=== PATIENT | female | born 1950 | race Caucasian/White ===

== ENCOUNTER → 2017-01-16 | Outpatient (CLI) | payer OTHER | LOC: FIMAGING 13:46 | DX: Z12.39 Encounter for other screening for malignant neoplasm of breast (principal) | CPT/HCPCS: G0206 ==

== ENCOUNTER 2017-06-10 08:27 | Emergency (ER) | payer OTHER ==
--- NOTE | 2017-06-10 08:57 | EDPHY ---
H & P Stated Complaint: "I think I have a kidney stone"; L flank "ache"/nausea Time Seen by Provider: 06/10/17 08:48 HPI/ROS: CHIEF COMPLAINT: Left flank pain and nausea HISTORY OF PRESENT ILLNESS: The patient presents to the ED with acute left flank pain and nausea. She has been having intermittent symptoms for the past several weeks. The patient does have a prior history of nephrolithiasis. She required lithotripsy x1. She passed a small stone spontaneously once. The patient does have a history of known chronic bilateral nephrolithiasis by her report. The patient's past medical history is also significant for back surgery in 2014. The patient is also hypertensive and diabetic. The patient reports that her pain in the left flank is moderate in nature. She denies any dysuria or associated hematuria. She denies any complaints of abdominal pain or lower extremity numbness/weakness. REVIEW OF SYSTEMS: A comprehensive 10 point review of systems is otherwise negative aside from elements mentioned in the history of present illness. Source: Patient - Personal History Current Tetanus Diphtheria and Acellular Pertussis (TDAP): Yes - Medical/Surgical History Hx Asthma: No Hx Chronic Respiratory Disease: No Hx Diabetes: Yes Hx Cardiac Disease: No Hx Renal Disease: No Hx Cirrhosis: No Hx Alcoholism: No Hx HIV/AIDS: No Hx Splenectomy or Spleen Trauma: No Other PMH: tonsillectomy, rt breast cyst removal, seasonal allergies, htn, frequent bronchitis in winter, diabetes, L kidney stone, lithotripsy, back surgery, HTN - Social History Smoking Status: Former smoker - Physical Exam Exam: General Appearance: Alert, no distress Eyes: Pupils equal and round no pallor or injection ENT, Mouth: Mucous membranes moist Respiratory: There are no retractions, lungs are clear to auscultation Cardiovascular: Regular rate and rhythm Gastrointestinal: Abdomen is soft and nontender, no masses, bowel sounds normal Back: Mild left CVA tenderness Neurological: A&O, normal motor function, normal sensory exam, normal cranial nerves Skin: Warm and dry, no rashes Musculoskeletal: Neck is supple nontender Extremities: symmetrical, full range of motion Psychiatric: Patient is oriented X 3, there is no agitation Constitutional: Initial Vital Signs Temperature (C) 36.6 C 06/10/17 08:29 Heart Rate 88 06/10/17 08:29 Respiratory Rate 18 06/10/17 08:29 Blood Pressure 216/99 H 06/10/17 08:29 O2 Sat (%) 97 06/10/17 08:29 O2 Delivery Mode Room Air Allergies/Adverse Reactions: No Known Allergies Allergy (Verified 06/10/17 08:28) Home Medications: Medication Instructions Recorded Lisinopril [Zestril 2.5 mg (*)] 2.5 mg PO DAILY 10/05/14 metFORMIN HCL [Glucophage 500 mg 500 mg PO BIDMEAL 10/05/14 (*)] Ergocalciferol [Vitamin D2 (*)] 50,000 unit PO TU@10/12/14 Levothyroxine Sodium [Unithroid] 100 mcg PO 06/10/17 Ondansetron Odt [Zofran Odt] 4 mg PO Q4PRN PRN #20 tab 06/10/17 Medical Decision Making - Diagnostics Imaging Results: Imaging Impressions Abdomen/Pelvis CT 06/10/17 08:48 Impression: 1. Minimal left hydronephrosis due to large central calculus in the renal pelvis (similar to May 2016). 2. Bilateral nephrolithiasis. No obstructing ureteral calculi. 3. Cholelithiasis and hepatic steatosis. 4. Suspected uterine leiomyoma (unchanged). Findings discussed with Emergency Department physician, Larry Mcknight, on June 10, 2017 at 9:30 a.m. Attention: This CT examination is specifically designed to evaluate patients who are clinically suspected of having acute obstructive uropathy. This examination does not use radiographic contrast, and as such, provides only a limited evaluation of the abdomen, pelvis and retroperitoneum. If there is further clinical suspicion for pathological conditions other than obstructive uropathy, a complete CT evaluation of the abdomen and pelvis utilizing intravenous, oral, and rectal contrast should be considered. ED Course/Re-evaluation: The patient presents to the ED for several weeks of intermittent left flank pain. The patient is noted to have no evidence of pyelonephritis on her urinalysis. The patient has a normal creatinine. The patient did have a CT scan of the abdomen pelvis which demonstrates a very large left kidney stone. The patient is advised of this finding. She has been advised to follow up with Urology. The patient certainly may need to be evaluated for possible lithotripsy at some intermittent symptoms of obstruction. The patient is nontoxic and well-appearing. The patient will be discharged home in stable condition. She is given a prescription for Zofran. I have also given her the contact number of our on-call urologist. I re-evaluated the patient at 10:30 a.m.. She is in no acute distress. She is comfortable with the discharge plan and has been given customary return precautions. Differential Diagnosis: Differential diagnosis considered includes nephrolithiasis, ureterolithiasis, pyelonephritis, renal failure, myofascial strain - Data Points Laboratory Results: Laboratory Results 06/10/17 09:00 06/10/17 09:00 06/10/17 06/10/17 06/10/17 10:05 09:00 09:00 WBC 7.25 10^3/uL 10^3/uL (3.80-9.50) RBC 4.11 10^6/uL L 10^6/uL (4.18-5.33) Hgb 13.3 g/dL g/dL (12.6-16.3) Hct 38.1 % % (38.0-47.0) MCV 92.7 fL fL (81.5-99.8) MCH 32.4 pg pg (27.9-34.1) MCHC 34.9 g/dL g/dL (32.4-36.7) RDW 13.2 % % (11.5-15.2) Plt Count 243 10^3/uL 10^3/uL (150-400) MPV 11.8 fL H fL (8.7-11.7) Neut % (Auto) 52.1 % % (39.3-74.2) Lymph % (Auto) 35.2 % % (15.0-45.0) Granite % (Auto) 6.9 % % (4.5-13.0) Eos % (Auto) 3.9 % % (0.6-7.6) Baso % (Auto) 1.1 % % (0.3-1.7) Nucleat RBC Rel Count 0.0 % % (0.0-0.2) Absolute Neuts (auto) 3.78 10^3/uL 10^3/uL (1.70-6.50) Absolute Lymphs (auto) 2.55 10^3/uL 10^3/uL (1.00-3.00) Absolute Monos (auto) 0.50 10^3/uL 10^3/uL (0.30-0.80) Absolute Eos (auto) 0.28 10^3/uL 10^3/uL (0.03-0.40) Absolute Basos (auto) 0.08 10^3/uL 10^3/uL (0.02-0.10) Absolute Nucleated RBC 0.00 10^3/uL 10^3/uL (0-0.01) Immature Gran % 0.8 % % (0.0-1.1) Immature Gran # 0.06 10^3/uL 10^3/uL (0.00-0.10) Sodium 139 mEq/L mEq/L (134-144) Potassium 4.7 mEq/L mEq/L (3.5-5.2) Chloride 105 mEq/L mEq/L (97-110) Carbon Dioxide 21 mEq/l L mEq/l (22-31) Anion Gap 13 mEq/L mEq/L (8-16) BUN 25 mg/dL H mg/dL (7-23) Creatinine 0.9 mg/dL mg/dL (0.6-1.0) Estimated GFR > 60 Glucose 249 mg/dL H mg/dL (70-100) Calcium 9.8 mg/dL mg/dL (8.5-10.4) Urine Color YELLOW Urine Appearance CLEAR Urine pH 5.0 (5.0-7.5) Ur Specific [place] 1.013 (1.002-1.030) Urine Protein 2+ H (NEGATIVE) Urine Ketones NEGATIVE (NEGATIVE) Urine Blood 1+ H (NEGATIVE) Urine Nitrate NEGATIVE (NEGATIVE) Urine Bilirubin NEGATIVE (NEGATIVE) Urine Urobilinogen NEGATIVE EU EU (0.2-1.0) Ur Leukocyte Esterase NEGATIVE (NEGATIVE) Urine RBC Pending Urine WBC Pending Ur Epithelial Cells Pending Urine Glucose 3+ H (NEGATIVE) Medications Given: Discontinued Medications Ondansetron HCl (Zofran) 4 mg IVP EDNOW ONE Stop: 06/10/17 09:22 Last Admin: 06/10/17 09:24 Dose: 4 mg Departure - Departure Disposition: Home, Routine, Self-Care Clinical Impression: Left nephrolithiasis Condition: Good Instructions: Kidney Stones (ED) Additional Instructions: 1. You do have a very large stone in your left kidney which certainly could be a source of intermittent left flank pain and nausea. I do recommend following up with Urology for further evaluation. Based upon the size of the stone lithotripsy would likely be required for treatment. 2. Zofran as needed for nausea 3. Take Ibuprofen or Motrin 600 mg by mouth three times a day. 4. You have been given the number of our on-call urologist who would be happy to see you in follow-up. Referrals: Sorin Garcia MD [Medical Doctor] - As per Instructions Prescriptions: Ondansetron Odt [Zofran Odt] 4 mg PO Q4PRN PRN #20 tab PRN Reason: For Nausea
[2017-06-10 09:10] LABS: PLATELET COUNT 243 10^3/uL (150-400)
[2017-06-10] MEDS ORDERED: ONDANSETRON 4 MG/2 ML VIAL IVP ONE (09:21)
[2017-06-10 09:31] VITALS: RESP 16
[2017-06-10 10:51] VITALS: BP 167/87; PULSE 71; TEMP 98.6; O2SAT 98
== END 2017-06-10 10:51 | disposition home or self-care (01) ==
DX: N20.0 Calculus of kidney (principal); E11.9 Type 2 diabetes mellitus without complications; I10 Essential (primary) hypertension; Z79.84 Long term (current) use of oral hypoglycemic drugs; Z87.891 Personal history of nicotine dependence
CPT/HCPCS: 74176; 96374; 99285; J2405

== ENCOUNTER → 2017-06-13 | Outpatient (CLI) | payer OTHER | LOC: CIMAGING 13:19 | PROVIDERS: ATTEND Urology | DX: N20.0 Calculus of kidney (principal); K59.00 Constipation, unspecified | CPT/HCPCS: 74018-PO ==

== ENCOUNTER → 2017-06-28 | Outpatient (CLI) | payer OTHER | LOC: BMCIMAGING 14:05 | PROVIDERS: ATTEND Radiology Diagnostic Radiology | DX: Z12.31 Encounter for screening mammogram for malignant neoplasm of breast (principal) ==

== ENCOUNTER → 2018-08-26 | Outpatient (CLI) | payer OTHER | LOC: EMCIMAGING 10:29 | PROVIDERS: ATTEND Internal Medicine | DX: Z12.31 Encounter for screening mammogram for malignant neoplasm of breast (principal) | CPT/HCPCS: 77067-PN ==